=== PATIENT | female | born 1955 | race Caucasian/White ===

== ENCOUNTER 2020-10-30 09:11 | Day surgery (SDC) | payer OTHER ==
[2020-10-28 12:48] VITALS: BMI 29.2
[~2020-10-30 09:11] MED LIST: LACTATED RINGERS 1,000 ML IV SCH; LIDOCAINE 1% (10MG/ML) FOR IV START INTRADERMA PRN
[2020-10-30 10:10] VITALS: RESP 16; TEMP 96.6
[2020-10-30] MEDS ORDERED: PROPOFOL 10 MG/ML 20 ML VIAL IV ONE (10:47)
[2020-10-30] MEDS ORDERED: MIDAZOLAM 2 MG/2 ML VIAL ONE (10:47)
--- NOTE | 2020-10-30 11:09 | P.PCN ---
Date of Procedure: 10/30/20 Procedure(s) Performed: BRIEF HISTORY: Patient is a 65-year-old pleasant white female scheduled for an elective colonoscopy as a part of screening for colorectal neoplasia. PROCEDURE PERFORMED: Colonoscopy. PREOPERATIVE DIAGNOSIS: Screening for colon cancer. IV sedation per Anesthesia. PROCEDURE: After informed consent was obtained, the patient, was brought into the endoscopy unit. IV sedation was administered by Anesthesia under continuous monitoring. Digital rectal examination was normal. Initially the Olympus CF-160 flexible video colonoscope was then inserted in the rectum, gradually advanced into the cecum without any difficulty. Careful examination was performed as the scope was gradually being withdrawn. Ileocecal valve and the appendiceal orifice were visualized and appeared normal. Prep was excellent. Mucosa of the cecum, ascending colon, transverse colon, descending colon, sigmoid colon, and rectum appeared normal. Retroflexion was performed in the rectum and no lesions were seen. The patient tolerated the procedure well. IMPRESSION: Normal-appearing colon from rectum to cecum with no evidence of colorectal neoplasia. RECOMMENDATIONS: Findings of this examination were discussed with the patient well as her family.. She was advised to have a repeat screening colonoscopy in 10 years
[2020-10-30 11:31] VITALS: BP 117/91; PULSE 73
== END 2020-10-30 11:48 ==
LOC: ORWHC2ENDO 09:11
PROVIDERS: ATTEND Internal Medicine Gastroenterology
DX: Z12.11 Encounter for screening for malignant neoplasm of colon (principal); K57.90 Diverticulosis of intestine, part unspecified, without perforation or abscess without bleeding; I10 Essential (primary) hypertension; E78.5 Hyperlipidemia, unspecified; F17.210 Nicotine dependence, cigarettes, uncomplicated; Z79.82 Long term (current) use of aspirin; Z79.899 Other long term (current) drug therapy
CPT/HCPCS: G0121; J2250; J2704; 45378

== ENCOUNTER → 2020-12-30 | Outpatient (CLI) | payer OTHER ==
--- NOTE | 2020-12-30 07:58 | MR ---
EXAMINATION TYPE: MR lumbar spine wo con DATE OF EXAM: 12/30/2020 COMPARISON: NONE HISTORY: Lower back pain, numbness in legs, prior surgery. TECHNIQUE: Multiplanar, multisequence imaging of the lumbar spine is performed without IV contrast. FINDINGS: There is dextroconvex scoliosis centered at L2 level. Alignment is straightened on sagittal images. There is grade 1 retrolisthesis L1 on L2 and grade 1 anterolisthesis L2 on L3 along with gra de 1 retrolisthesis L4 on L5 and L5 and S1. Sagittal images of the lumbar spine show vertebral body h eight to appear satisfactory. Multilevel disc desiccation. Moderate to advanced disc space narrowing with heterogeneous Modic type II endplate changes and moderate to severe spurring L5-S1 level. Modera te disc space narrowing L1-L2 and L2-L3 levels with heterogeneous Modic type III endplate changes ant eriorly and moderate to severe anterior spurring. Artifact from postsurgical change posteriorly mid t o lower lumbar spine is present. The conus medullaris is normal in position and signal ending mid L1 level. Axial images at T12-L1 level shows spondylolisthesis with moderate to severe broad disc bulge effacin g anterior thecal sac. There is moderate facet degenerative changes and ligamentum flavum hypertrophy . There is mild bilateral anterior inferior neural foraminal narrowing. Axial images at L1-L2 level shows severe broad disc bulge and moderate facet degenerative changes. Th ere is effacement of the anterior and posterior lateral thecal sac. There is advanced left and mild t o moderate right-sided neural foraminal narrowing. Axial images at L2-L3 level show spondylolisthesis with advanced broad disc bulge. There is right brown inectomy defect. There is moderate to advanced facet degenerative change bilaterally. There is efface ment of the left posterolateral thecal sac and the anterior thecal sac. There is mild to moderate louie ateral neural foraminal narrowing noted right greater than left. Axial images at L3-L4 level show artifact posteriorly from surgical change. There is spondylolisthesi s with moderate to advanced broad-based posterior disc protrusion effaces the anterior thecal sac. Th ere is moderate to advanced facet arthropathy bilaterally. There is mild left-sided neural foraminal narrowing. Right-sided neural foramen is patent. Axial images at L4-L5 level shows advanced facet degenerative changes and ligamentum flavum hypertrop hy with some effacement of the posterior lateral thecal sac. The susceptibility artifact from prior s urgery. There is moderate broad disc bulge. Encroachment right lateral recess. Patent left-sided neur al foramina. Mild to moderate right-sided neural foraminal narrowing noted. Axial images at L5-S1 level show artifact posteriorly and spinous process resection. Mild facet arthr opathy bilaterally there is spur disc complex with spinal canal is preserved. There is moderate to se willow right and mild left-sided neural foraminal narrowing. Encroachment right L5 nerve without presen t sagittal image 11 and axial image 2. There are few scattered thin-walled cyst with visualized portions left kidney. IMPRESSION: Loss of normal lumbar lordosis. Dextroconvex scoliosis. Multilevel spondylolisthesis and degenerative changes as detailed above. Postsurgical change posteriorly lower lumbar spine. Correlati on with old outside imaging would be beneficial.
== END | disposition home or self-care (01) ==
LOC: RADMRIMAIN 06:27
PROVIDERS: ATTEND Family Medicine
DX: M43.16 Spondylolisthesis, lumbar region (principal); M47.816 Spondylosis without myelopathy or radiculopathy, lumbar region; M41.86 Other forms of scoliosis, lumbar region; M53.86 Other specified dorsopathies, lumbar region; Z98.890 Other specified postprocedural states
CPT/HCPCS: 72148

== ENCOUNTER → 2021-01-18 | Outpatient (CLI) | payer OTHER ==
--- NOTE | 2021-01-18 08:20 | CT ---
EXAMINATION TYPE: CT lumbar spine wo con DATE OF EXAM: 01/18/2021 COMPARISON: None HISTORY: 65-year-old female disc degeneration, pain TECHNIQUE: Contiguous axial scanning of the lumbar spine without IV contrast. Coronal and sagittal re constructions performed. CT DLP: 1331.7 mGycm Automated exposure control for dose reduction was used. FINDINGS: Small to moderate sized hiatal hernia. Vertebral body heights are preserved. Degenerated disc. Previous fusion hardware along the posterior elements from L2 through L5 levels. Ad vanced hypertrophic facet arthropathy both above and below the fusion at L1-L2 and L5-S1. Advanced de generative disc disease also noted at these levels and also within the remainder of the lumbar spine. There is mature lateral osseous fusion along the fused levels. Grade 1 anterolisthesis L3-L4. Degenerative grade 1 anterolisthesis above the fusion at L2-L3. There is underlying congenital spinal canal stenosis. This is exacerbated by discussed by complex for mation particularly at T12-L1 and L1-L2 resulting in focal levels of severe spinal canal stenosis. Moderate spinal canal stenosis at L3-L4. Mild at additional levels. On the left, changes both in severe spinal canal stenosis at L1-L2 and moderate additional levels. On the right, changes result in moderate to severe spinal canal stenosis at L5-S1 and moderate at L3- L4 and L4-L5. Stable 4.8 cm craniocaudal by 1.9 cm wide by 9 mm AP fluid collection along the posterior midline op posite the L2 and L3 levels. IMPRESSION: 1. DEGENERATED DEXTROCONVEX SCOLIOSIS WITH PREVIOUS POSTERIOR ELEMENT FUSION HARDWARE AND LATERAL OSS EOUS FUSION FROM L2 THROUGH L5 LEVELS. 2. FIXED GRADE 1 ANTEROLISTHESIS AT L2-L3 AND DEGENERATIVE GRADE 1 ANTEROLISTHESIS AT L1-L2. CHANGES ARE SUPERIMPOSED ON A CONGENITAL SPINAL CANAL STENOSIS. 3. SEVERE DEGENERATIVE DISC DISEASE AT THE NONFUSED LEVELS AND ADVANCED HYPERTROPHIC FACET ARTHROPATH Y. 4. DUE TO DISC OSTEOPHYTE COMPLEX FORMATION, THERE IS OVERALL SEVERE FOCAL SPINAL CANAL STENOSES AT T 12-L1 AND L1-L2. MODERATE OVERALL SPINAL CANAL STENOSIS AT L3-L4 AND MILD AT OTHER LEVELS. 5. VARIABLE NEURAL FORAMINAL STENOSES OUTLINED ABOVE. 6. SMALL STABLE ELONGATED 4.8 X 1.9 CM FLUID COLLECTION ALONG THE POSTERIOR MIDLINE SOFT TISSUES OPPO SITE THE L2 AND L3 LEVELS. POSSIBLE CHRONIC HEMATOMA OR SEROMA. FURTHER CLINICAL CORRELATION CAN BE M LEWIS TO EXCLUDE ABSCESS. 7. [id number] SIZED HIATAL HERNIA.
== END | disposition home or self-care (01) ==
LOC: RADCTMAIN 06:46
PROVIDERS: ATTEND Neurological Surgery
DX: M48.061 Spinal stenosis, lumbar region without neurogenic claudication (principal); M48.05 Spinal stenosis, thoracolumbar region; M43.16 Spondylolisthesis, lumbar region; M51.36 Other intervertebral disc degeneration, lumbar region; M47.816 Spondylosis without myelopathy or radiculopathy, lumbar region; M41.86 Other forms of scoliosis, lumbar region; M79.89 Other specified soft tissue disorders; Z98.1 Arthrodesis status
CPT/HCPCS: 72131

== ENCOUNTER → 2021-01-25 | Outpatient (CLI) | payer OTHER ==
--- NOTE | 2021-01-25 13:01 | MR ---
MRI CERVICAL SPINE: CLINICAL HISTORY: Degenerative disc disease, ataxic gait, back pain TECHNIQUE: Multiplanar, multisequence imaging of the cervical spine and thoracic spine is performed w ithout IV contrast. COMPARISON: Lumbar spine MRI 12/30/2020 FINDINGS: Cervical spine MRI: Sagittal images of the cervical spine show the craniocervical junction to appear within normal limits. The cervical and upper thoracic spinal cord is normal in course, caliber, and signal. Vertebral alignment is near anatomic. There is some multilevel spondylosis with endplate dis cogenic marrow signal change. Some loss of disc height signal is present C3-4, C4-5 and C5-6, C6-7. M inimal anterolisthesis grade 1 C3-4 and C4-5, retrolisthesis grade 1 C5-6. C2-3: There is a left posterior paracentral extension of endplate disc complex causing anterolateral mass effect on the thecal sac and extending to cause some foraminal encroachment, there is some assoc iated facet arthropathy change. No significant central stenosis. C3-4: Posterior broad-based disc bulge causes mild anterior mass effect on the thecal sac. Uncoverteb ral joint hypertrophy facet arthropathy results in foraminal encroachment greater on the left than on the right. No significant central stenosis. C4-5: No evident disc herniation. There is some left-sided foraminal encroachment greater than right due to uncovertebral joint hypertrophy and facet arthropathy. No central stenosis. C5-6: Retrolisthesis contributes with posterior extension endplate disc complex, circumferential post erior disc bulge causing anterior mass effect thecal sac and possibly cord contact, question some mas s effect on the cervical cord. There is bilateral foraminal encroachment right greater than left due to uncovertebral joint hypertrophy and facet arthropathy. Some mild central canal stenosis is present . C6-7: Posterior broad-based disc bulge, extension endplate disc complex causes some mild anterior mas s effect on the thecal sac. No significant central canal stenosis. Some right-sided foraminal encroac hment is present. C7-T1: No significant disc herniation or foraminal encroachment, no spinal stenosis. Thoracic spine MRI: Thoracic vertebral bodies show preserved height and alignment. There is multileve l spondylosis with endplate discogenic marrow signal change. Thoracic cord signal is maintained. Ther e is a spinal curvature. Probable cortical cyst associated with the upper pole the left kidney. T7-T8 shows a left posterior paracentral disc herniation causing some anterolateral mass effect on th e thecal sac and possibly cord contact. T8-9 shows posterior broad-based disc bulge causing mild anterior mass effect on the thecal sac. T9-1 0 shows posterior extension endplate disc complex causing mild anterior mass effect on the thecal sac . There is some mild foraminal encroachment. T9-10: There is a posterior broad-based disc bulge causing anterior mass effect on the thecal sac. Th ere is some facet arthropathy change causing posterior lateral mass effect on the thecal sac. Bilater al foraminal encroachment is present. T12-L1: There is a posterior linnette based disc herniation causing anterior mass effect on the conus. The re is some facet arthropathy change causing some posterior lateral mass effect on the thecal sac, the re is moderate canal stenosis, bilateral foraminal encroachment due to circumferential extension endp late disc complex greater on the right. IMPRESSION: Degenerative disc disease, facet arthropathy, multilevel foraminal encroachment, spinal s tenosis as described.
== END ==
LOC: RADMRIMAIN 08:19
PROVIDERS: ATTEND Neurological Surgery
DX: M51.25 Other intervertebral disc displacement, thoracolumbar region (principal); M48.02 Spinal stenosis, cervical region; M47.812 Spondylosis without myelopathy or radiculopathy, cervical region; M50.223 Other cervical disc displacement at C6-C7 level
CPT/HCPCS: 72141; 72146

== ENCOUNTER → 2021-06-01 | Outpatient (CLI) | payer MEDICARE, OTHER ==
--- NOTE | 2021-06-03 11:42 | MM ---
Reason for exam: screening (asymptomatic). Last mammogram was performed 2 years and 3 months ago. History: Patient is postmenopausal. Took hormonal contraceptives for 3 years. Physical Findings: A clinical breast exam by your physician is recommended on an annual basis and results should be correlated with mammographic findings. MG 3D Screening Mammo W/Cad Bilateral CC and MLO view(s) were taken. Prior study comparison: February 26, 2019, mammogram, performed at [place]. The breast tissue is heterogeneously dense. This may lower the sensitivity of mammography. Stable benign calcifications. There is no discrete abnormality. No significant changes when compared with prior studies. ASSESSMENT: Benign, BI-RAD 2 RECOMMENDATION: Routine screening mammogram of both breasts in 1 year.
== END | disposition home or self-care (01) ==
LOC: RADMAMWWP 07:05
PROVIDERS: ATTEND Family Medicine
DX: Z12.31 Encounter for screening mammogram for malignant neoplasm of breast (principal); Z78.0 Asymptomatic menopausal state; Z79.3 Long term (current) use of hormonal contraceptives
CPT/HCPCS: 77063; 77067

== ENCOUNTER → 2021-09-15 | Outpatient (CLI) | payer MEDICARE, OTHER ==
--- NOTE | 2021-09-15 08:41 | CT ---
EXAMINATION TYPE: CT thoracic spine wo con DATE OF EXAM: 09/15/2021 COMPARISON: Lumbar spine 01/18/2021 HISTORY: scoliosis thoracolumbar region CT DLP: 936 mGycm Automated exposure control for dose reduction was used. FINDINGS: There is a subtle scoliotic curvature of the vertebral column. There is hypertrophic spurring and mod erate to severe degenerative disc disease at virtually all levels. Vertebral body height is maintaine d. There are no compression. Multilevel hypertrophic change of the facets most noted in the lower tho racic spine Assessment spinal canal is markedly limited due to resolution and artifact. At T7-T8 there is abnormal left paracentral attenuation seen suspicious for disc herniation. At T8-T9 paracentral disc bulging. Could not exclude canal stenosis. T9-T10 and T10-T11 there is posterior spondylosis and spurring. At T10-T11 there is significant compr ession of the thecal sac with findings suggestive of canal stenosis at T10-T11 At T12-L1 there is large posterior spur osteophyte disc complex resulting in severe compression of th e thecal sac. There is facet arthropathy and bilateral foraminal encroachment and severe canal stenos is. Cord compression is not excluded. Atherosclerotic change of the aorta noted. Suspected aneurysm of the ascending aorta which is only pa rtially included on exam. IMPRESSION: 1. Multilevel moderate to severe degenerative disc disease with posterior spur formation. Suspected d isc herniation T7-T8 paracentral to the left. 2. Spurring and disc osteophyte complex T12-L1 and T10-T11 results in severe canal stenosis and likel y compression of the spinal cord correlate clinically. Given limitation of the exam recommend MRI. 3. Findings are suspicious for ascending aorta aneurysm which is only partially included on exam coul d be correlated with CT scan of the chest.
== END | disposition home or self-care (01) ==
LOC: RADCTMAIN 07:58
PROVIDERS: ATTEND Neurological Surgery
DX: M51.34 Other intervertebral disc degeneration, thoracic region (principal); M48.04 Spinal stenosis, thoracic region
CPT/HCPCS: 72128

== ENCOUNTER → 2021-09-29 | Outpatient (CLI) | payer MEDICARE, OTHER ==
--- NOTE | 2021-09-29 09:18 | CT ---
EXAMINATION TYPE: CT chest wo con DATE OF EXAM: 09/29/2021 COMPARISON: None HISTORY: Aortic aneurysm without rupture CT DLP: 379.10 mGycm, Automated exposure control for dose reduction was used. CONTRAST: Performed injected with 0 mL of Isovue 300. TECHNIQUE: Axial images were obtained at 5 mm thick sections. Reconstructed images are reviewed on t he computer in the coronal plane. FINDINGS: Portion of the thyroid visualized is normal. Minimal infiltrate may be in the posterior right upper lung field, example image series 4 image 15. T his is nonspecific. Atelectasis could be considered. No enlarged mediastinal or hilar adenopathy is evident. The ascending aorta diameter at the level o f the main pulmonary artery is 4.0 cm. The main pulmonary artery diameter at the bifurcation is 2.3 cm. Coronary artery calcification is noted. Limited CT sections are obtained through the upper abdomen. Abdomen is essentially unremarkable. IMPRESSIONS: 1. Ascending thoracic aortic aneurysm measures 4.0 cm. No additional aneurysmal dilatation is evident within the field of view. 2. Minimal subsegmental atelectasis may be present within the lungs.
== END | disposition home or self-care (01) ==
LOC: RADCTMAIN 08:30
PROVIDERS: ATTEND Family Medicine
DX: I71.2 Thoracic aortic aneurysm, without rupture (principal); J98.11 Atelectasis
CPT/HCPCS: 71250

== ENCOUNTER → 2021-11-26 | Outpatient (CLI) | payer MEDICARE, OTHER ==
--- NOTE | 2021-11-26 09:44 | MR ---
EXAMINATION TYPE: MR angio head wo con DATE OF EXAM: 11/26/2021 COMPARISON: NONE HISTORY: Family history of aneurysms, history of AAA. TECHNIQUE: Utilizing 3-D [id number] intracranial MRA of the [place] was performed. FINDINGS: The vertebrobasilar and carotid systems are patent. There is a 1 mm prominence extending off the left distal ICA. Left vertebral artery is dominant. IMPRESSION: 1. Findings are suspicious for a 1 mm left distal ICA aneurysm.
== END | disposition home or self-care (01) ==
LOC: RADMRIMAIN 05:49
PROVIDERS: ATTEND Neurological Surgery
DX: I67.1 Cerebral aneurysm, nonruptured (principal)
CPT/HCPCS: 70544

== ENCOUNTER → 2022-11-09 | Outpatient (CLI) | payer MEDICARE, OTHER ==
--- NOTE | 2022-11-09 20:48 | MR ---
EXAMINATION TYPE: MR lumbar spine wo con DATE OF EXAM: 11/09/2022 COMPARISON: Prior MRI lumbar spine December 30, 2020 HISTORY: Low back pain that radiates into left and right buttocks, history of surgery. Spondylolisthe sis. Spinal stenosis. TECHNIQUE: Multiplanar, multisequence imaging of the lumbar spine is performed without IV contrast. FINDINGS: There is persistent dextroconvex scoliosis centered at L2 level. Alignment is stable and st raightened on sagittal images. There is grade 1 retrolisthesis L1 on L2 and grade 1 anterolisthesis L 2 on L3 along with grade 1 anterolisthesis L4 on L5 . Sagittal images of the lumbar spine show verteb ral body heights to appear satisfactory. Multilevel disc desiccation. Moderate to advanced disc space narrowing with heterogeneous Modic type II endplate changes and moderate to severe anterior spurring L5-S1 level is redemonstrated. Moderate disc space narrowing L1-L2 and L2-L3 levels with heterogeneo us Modic type III endplate changes anteriorly and moderate to severe anterior spurring is redemonstra tejinder. Artifact from postsurgical change posteriorly mid to lower lumbar spine is redemonstrated. The c onus medullaris remains normal in position and signal ending superior L2 level. Axial images at T12-L1 level shows spondylolisthesis with moderate to severe broad disc bulge effacin g anterior thecal sac. There is moderate facet degenerative changes and ligamentum flavum hypertrophy . There is mild bilateral anterior inferior neural foraminal narrowing. No significant change from pr ior. Axial images at L1-L2 level shows severe broad disc bulge and mild to moderate facet degenerative cody nges left greater than right. There is effacement of the anterior and posterior lateral thecal sac. T here is advanced left and mild to moderate right-sided neural foraminal narrowing redemonstrated. Axial images at L2-L3 level show spondylolisthesis with advanced broad disc bulge. There is right brown inectomy defect. There is moderate to advanced facet degenerative change bilaterally. There is efface ment of the left posterolateral thecal sac and the anterior thecal sac. There is mild to moderate louie ateral neural foraminal narrowing redemonstrated. No significant change. Axial images at L3-L4 level show artifact posteriorly from surgical change. There is spondylolisthesi s with moderate to advanced broad-based posterior disc protrusion effaces the anterior thecal sac. Th ere is moderate to advanced facet arthropathy bilaterally. There is mild bilateral neural foraminal n arrowing. Axial images at L4-L5 level shows advanced facet degenerative changes and ligamentum flavum hypertrop hy with some effacement of the posterior lateral thecal sac. There is susceptibility artifact from pr ior surgery. There is moderate broad disc bulge with encroachment right lateral recess. Patent left-s ided neural foramina. Mild right-sided neural foraminal narrowing redemonstrated. No significant carias ge. Axial images at L5-S1 level show artifact posteriorly and spinous process resection. Mild facet arthr opathy bilaterally redemonstrated. There is spur disc complex with spinal canal minimally effaced. Th ere is severe right and mild left-sided neural foraminal narrowing. Encroachment right L5 nerve is re demonstrated . There are few scattered thin-walled cysts with visualized portions of both kidneys. IMPRESSION: Loss of normal lumbar lordosis redemonstrated. Dextroconvex scoliosis redemonstrated. Mul tilevel spondylolisthesis and degenerative changes as detailed above. Postsurgical change posteriorly lower lumbar spine. No significant change from most recent MRI.
== END | disposition home or self-care (01) ==
LOC: RADMRIMAIN 18:08
PROVIDERS: ATTEND Neurological Surgery
DX: M43.16 Spondylolisthesis, lumbar region (principal); M48.04 Spinal stenosis, thoracic region; M47.816 Spondylosis without myelopathy or radiculopathy, lumbar region; M40.56 Lordosis, unspecified, lumbar region; M48.061 Spinal stenosis, lumbar region without neurogenic claudication
CPT/HCPCS: 72148

== ENCOUNTER → 2022-11-19 | Outpatient (CLI) | payer MEDICARE, OTHER ==
--- NOTE | 2022-11-19 15:03 | MR ---
EXAMINATION TYPE: MR thoracic spine wo con DATE OF EXAM: 11/19/2022 COMPARISON: 01/25/2021 HISTORY: Mid back pain. Multiplanar multiecho imaging of the thoracic spine performed with no contrast. Thoracic vertebrae have normal alignment. There is posterior disc herniation from T7 to T11. Disc her niation larger at T7-8. There is developmentally adequate spinal canal from T7 to T9. At T10-11 there is disc herniation and some narrowing of the spinal canal. The canal measures 7 mm. No evidence of c ord edema. At T12-L1 and L1-L2 there are moderate posterior disc herniations and impingement on the s franky canal. No compression fracture. No thoracic paraspinal mass. No fracture. IMPRESSION: Spondylotic changes in the lower thoracic spine with disc space narrowing and multilevel posterior di sc herniation. There is a mild relative spinal stenosis at T10-11. No thoracic cord edema. At T12-L1 and L1-L2 there are moderate-sized posterior disc herniations and spinal stenosis which is not well e valuated and appears not significantly different than old MR scan of 01/25/2021. Spinal stenosis at T10 -11 slightly increased compared to old exam.
== END | disposition home or self-care (01) ==
LOC: RADMRIMAIN 13:19
PROVIDERS: ATTEND Neurological Surgery
DX: M48.04 Spinal stenosis, thoracic region (principal); M47.814 Spondylosis without myelopathy or radiculopathy, thoracic region; M51.24 Other intervertebral disc displacement, thoracic region; M99.72 Connective tissue and disc stenosis of intervertebral foramina of thoracic region
CPT/HCPCS: 72146

== ENCOUNTER → 2022-12-13 | Outpatient (CLI) | payer MEDICARE, OTHER ==
[2022-12-15 06:09] LABS: Cotinine 4.5 ng/mL (<2.0); Nicotine <2.0 ng/mL (<2.0)
== END | disposition home or self-care (01) ==
LOC: LABWHC1 16:06
PROVIDERS: ATTEND Neurological Surgery
DX: M40.30 Flatback syndrome, site unspecified (principal)
CPT/HCPCS: 82375; 36415; G0480; 80323

== ENCOUNTER → 2023-09-27 | Outpatient (CLI) | payer MEDICARE, OTHER ==
[2023-09-27 07:31] LABS: African American GFR (CKD) >90 (>60 ml/min/1.73 sqM); Blood Urea Nitrogen 12 mg/dL (7-17); Non-African American GFR(CKD) >90 (>60 ml/min/1.73 sqM)
--- NOTE | 2023-09-27 08:12 | CT ---
EXAMINATION TYPE: CT angio chest CT DLP: 598.3 mGycm, Automated exposure control for dose reduction was used. DATE OF EXAM: 09/27/2023 8:00 AM COMPARISON: 08/23/2023 and 09/29/2022. CLINICAL INDICATION:Female, 68 years old with history of I71.20 THORACIC AORTIC ANEURYSM WO RUPTURE; Thoracic aneurysm TECHNIQUE/CONTRAST: CTA scan of the thorax is performed without and with IV Contrast, patient injected with 100 mL of Iso rod 370, MIP images are created and reviewed these are created on a separate workstation.. FINDINGS: Lungs/Pleura: No evidence of focal consolidation, pleural effusion or pneumothorax. Airway: Large airways are patent. Heart: Heart is within normal limits for size. Vasculature: No evidence for intramural hematoma on noncontrast imaging. No evidence of intimal flap to suggest dissection. No aneurysm identified. Scattered atherosclerotic disease. No evidence for oc clusion of the visualized major vessels of the thoracic aorta. Mediastinum: No gross evidence of adenopathy. Musculoskeletal: No acute osseous abnormalities, extensive surgical changes throughout the spine with streak artifact which limits evaluation. Hardware appears intact. Soft Tissues: Unremarkable. Lower neck: There is a fluid collection partially in the [id number] in the upper spine measuring 4 .5 x 2.6 cm in the subcutaneous tissues of the back likely relating to patient's history of spine ayala andi. Upper Abdomen: No significant findings. IMPRESSION: 1. Borderline ectasia of the ascending thoracic aorta measuring up to 3.9 cm when measuring orthogon al to the axis of flow. No evidence for aortic aneurysm. No evidence for dissection. 2. There is a fluid collection partially in the [id number] in the upper spine measuring 4.5 x 2.6 cm in the subcutaneous tissues of the back likely relating to patient's history of spine surgery. Un changed from prior 08/23/2023 and new from 09/29/2022.
== END | disposition home or self-care (01) ==
LOC: RADCTMAIN 06:56
PROVIDERS: ATTEND Surgery
DX: I71.21 Aneurysm of the ascending aorta, without rupture (principal); R60.9 Edema, unspecified
CPT/HCPCS: 82565; 84520; 71275; 36415; Q9967

== ENCOUNTER → 2024-01-05 | Outpatient (CLI) | payer MEDICARE, OTHER ==
--- NOTE | 2024-01-08 08:17 | MM ---
Reason for Exam: Screening (asymptomatic). Last mammogram was performed 2 year(s) and 7 month(s) ago. Patient History: Menarche at age 16. First Full-Term at age 17. Postmenopausal. Patient used Hormonal Contraceptives for 3 years. Risk Values: Kaitlyn 5 year model risk: 1.1%. NCI Lifetime model risk: 3.8%. Prior Study Comparison: 02/26/2019 Screening Mammogram, [place]. 06/01/2021 Bilateral Screening Mammogram, [facility]. Tissue Density: The breast tissue is almost entirely fat. Findings: Analyzed By CAD. There is no suspicious group of microcalcifications or new suspicious mass. Overall Assessment: Negative, BI-RAD 1 Management: Screening Mammogram of both breasts in [address] [facility] will attempt to contact patient to return for supplemental views and ultrasound if indicated. Patient should continue monthly self-breast exams. A clinical breast exam by your physician is recommended on an annual basis. This exam should not preclude additional follow-up of suspicious palpable abnormalities. Note on Kaitlyn scores and lifetime risk: 1. A Kaitlyn score greater than 3% is considered moderate risk. If this is the case, consider specialist referral to assess eligibility for a risk reducing agent. 2. If overall lifetime risk for the development of breast cancer is 20% or higher, the patient may qualify for future screening with alternating mammogram and breast MRI. Electronically signed and approved by: Vickey Brantley DO
== END | disposition home or self-care (01) ==
LOC: RADMAMWWP 07:05
PROVIDERS: ATTEND Family Medicine
DX: Z12.31 Encounter for screening mammogram for malignant neoplasm of breast (principal); Z78.0 Asymptomatic menopausal state
CPT/HCPCS: 77063; 77067

== ENCOUNTER → 2024-04-05 | Outpatient (CLI) | payer MEDICARE, OTHER ==
--- NOTE | 2024-04-05 08:50 | MR ---
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 TECHNIQUE: Multi planar, multi sequence imaging was performed utilizing: T1-weighted, T2-weighted, an d turbo inversion recovery imaging of the cervical spine. IV Contrast: cc (none if empty) FINDINGS: Alignment: The cervical vertebral bodies have preserved heights. Grade 1 anterolisthesis of C4 on C5. Bones: Osteophytes and disc space narrowing most pronounced at the C4 C5 C6 vertebral levels. Suscept ibility artifact of the upper thoracic spine from fixation hardware. Cord: The spinal cord is unremarkable with regards to their signal intensity and morphology. Discs: Intervertebral disc signal is maintained. C2-C3: No significant disc pathology. The spinal canal is patent. Bilateral facet and uncovertebral joint arthropathy are present with mild left neural foraminal stenosis. The right neural foramen is p atent. C3-C4: No significant disc pathology. The spinal canal is patent. Bilateral facet and uncovertebral joint arthropathy are present with moderate bilateral neural foraminal stenosis. C4-C5: No significant disc pathology. The spinal canal is patent. Bilateral facet and uncovertebral joint arthropathy are present with mild to moderate bilateral neural foraminal stenosis. C5-C6: A disc osteophyte complex is present with moderate spinal canal stenosis. Bilateral facet and uncovertebral joint arthropathy are present with moderate to severe right and moderate left neural f oraminal stenosis. C6-C7: No significant disc pathology. The spinal canal is patent. Bilateral facet and uncovertebral joint arthropathy are present with mild bilateral neural foraminal stenosis. C7-T1: No significant disc pathology. The spinal canal is patent. No neural foraminal stenosis. Other: None. IMPRESSION: 1. No evidence for disc herniation. 2. C5-C6 moderate spinal canal stenosis secondary to disc osteophyte complex. 3. Mild to moderate disc degeneration with associated osteoarthritic changes. 4. Neural foraminal stenosis worse with moderate to severe right C5-C6, moderate bilateral C3-C4 and moderate left C5-C6 neural foraminal stenosis. 5. Grade 1 anterolisthesis of C4 on C5.
== END | disposition home or self-care (01) ==
LOC: RADMRIMAIN 07:36
PROVIDERS: ATTEND Neurological Surgery
DX: M48.02 Spinal stenosis, cervical region (principal); M50.30 Other cervical disc degeneration, unspecified cervical region; M43.12 Spondylolisthesis, cervical region; M99.71 Connective tissue and disc stenosis of intervertebral foramina of cervical region; M25.78 Osteophyte, vertebrae; M40.30 Flatback syndrome, site unspecified
CPT/HCPCS: 72141

== ENCOUNTER → 2024-05-03 | Outpatient (CLI) | payer MEDICARE, OTHER ==
--- NOTE | 2024-05-10 22:48 | CT ---
EXAMINATION TYPE: CT cervical spine wo con, CT thoracic spine wo con DATE OF EXAM: 05/03/2024 COMPARISON: Thoracic spine 09/15/2021 HISTORY: 69-year-old female spinal stenosis. M48.02SPINAL STENOSIS, CERVICAL APOLINAR M41.85 M48.04 TECHNIQUE: Contiguous axial scanning of the cervical and thoracic spine without IV contrast. Coronal and sagittal reconstructions performed. CT DLP: 619.3 (accession [id number]), 1515.7 (accession [id number]) mGycm Automated exposure control for dose reduction was used. FINDINGS: CERVICAL SPINE: No craniocervical junction abnormality, predental space widening, or prevertebral soft tissue swellin g. Mild degenerative change at the C1 dens articulation. Advanced hypertrophic facet arthropathy is present throughout with scattered moderate uncovertebral j oint arthropathy mid and lower cervical spine. Mild to moderate multilevel degenerative disc disease. Degenerative grade 1 anterolisthesis C4-C5. Remaining alignment is maintained. Disc osteophyte complexes likely contributing to mild spinal canal narrowing at various levels, possi ronaldo more moderate at C5-C6 though artifact from the patient's shoulders limits detailed assessment of the spinal canal. No acute fracture of the cervical spine. At C2-C3, uncovertebral joint and facet arthropathy especially towards the left continues to a modera te left neuroforaminal stenosis. At C3-C4, hypertrophic facet arthropathy with uncovertebral joint spurring contributes to moderate to severe left and [id number] right neuroforaminal stenosis. At C4-C5, severe hypertrophic facet and uncovertebral joint arthropathy, left greater than right cont ributes to severe left and mild right neural foraminal stenosis. At C5-C6, similar changes result in moderate right neuroforaminal stenosis. At C6-C7, uncovertebral joint and facet arthropathy contributes to moderate right and mild left neuro foraminal stenosis. Incidentally, some retained metal wire noted in the posterior right paraspinal musculature opposite t he T2-T3 level. THORACIC SPINE: As compared to 01/16/2021, there has been placement of extensive posterior thoracolumbar fusion hardwa re extending down from the T4 level. There is focal kyphotic deformity at T3-T4 with a superior endplate deformity of T4 with 40% anterior height loss, severe degenerative disc disease at T3-T4, and a grade 2 anterolisthesis here as well. Posterior osteophytic ridging may be slightly increased compared to 09/27/2023 and may cause a moderat e focal spinal canal stenosis. Correlate for any neurologic symptoms. Overall appearance is relativel y similar compared to 09/27/2023. Laminectomy change T12-L1 with bulky posterior disc osteophyte complex here. Remaining vertebral body heights are preserved. IMPRESSION: CERVICAL SPINE: 1. [id number] multilevel degenerative disc disease but with more advanced multilevel hypertroph ic facet and uncovertebral joint arthropathy. Degenerative grade 1 anterolisthesis C4-C5. 2. Variable mild spinal canal narrowing though possibly more moderate at C5-C6. Artifact from the pat ient's shoulders limits detailed assessment of the spinal canal. 3. Variable neural foraminal stenoses as outlined above. Severe on the left at C4-C5. THORACIC SPINE: 4. Placement of extensive posterior thoracolumbar fusion hardware extending down from the T4 level an d down beyond the [id number], new compared to 01/16/2021. 5. Superior endplate deformity of T4 with 40% anterior height loss, secondary focal kyphosis, and a g rade 2 anterolisthesis here at L3-L4. The overall configuration appears similar compared to 09/27/2023 though the posterior osteophytic ridging may be slightly increased. There may be a moderate spinal c anal stenosis here at L3-L4. 6. Redemonstrated bulky posterior disc osteophyte complex at T12-L1 but with interval laminectomy at this level.
== END | disposition home or self-care (01) ==
LOC: RADCTMAIN 06:18
PROVIDERS: ATTEND Neurological Surgery
DX: M43.12 Spondylolisthesis, cervical region (principal); M47.812 Spondylosis without myelopathy or radiculopathy, cervical region; M99.71 Connective tissue and disc stenosis of intervertebral foramina of cervical region; M48.02 Spinal stenosis, cervical region; M40.204 Unspecified kyphosis, thoracic region; M43.8X4 Other specified deforming dorsopathies, thoracic region; M48.04 Spinal stenosis, thoracic region; M43.16 Spondylolisthesis, lumbar region; M25.78 Osteophyte, vertebrae; Z98.1 Arthrodesis status
CPT/HCPCS: 72125; 72128

== ENCOUNTER → 2024-09-12 | Outpatient (CLI) | payer MEDICARE, OTHER ==
--- NOTE | 2024-09-12 11:54 | CT ---
EXAMINATION TYPE: CT chest wo con DATE OF EXAM: 09/12/2024 COMPARISON: 08/23/2023 HISTORY: THORACIC AORTIC ANEURYSM, WITHOUT RUPTURE CT DLP: 420.10 mGycm. Automated Exposure Control for Dose Reduction was Utilized. TECHNIQUE: CT scan of the thorax is performed without IV contrast. FINDINGS: LUNGS: The lungs are grossly clear, there is no concerning parenchymal mass or nodule identified. T here is no pleural effusion or pneumothorax seen. The tracheobronchial tree is patent. The heart and pulmonary vasculature are normal. Limited scanning through the upper abdomen reveals no abnormality. There are postsurgical changes in the dorsal spine but no focal osseous lesions. There is a 4.2 cm dilatation of the ascending thoracic aorta essentially stable compared to the prior study where it measured 4.1 cm There is no mediastinal, hilar or axillary adenopathy. IMPRESSION: 1. Stable 4.2 cm dilatation of the ascending thoracic aorta. 2. No acute cardiopulmonary disease. Follow-up recommendations for incidental pulmonary nodules are per [employer] or [employer]. [facility], , 09/12/2024 11:51 AM
== END | disposition home or self-care (01) ==
LOC: RADCTMAIN 11:22
PROVIDERS: ATTEND Surgery
DX: I71.20 Thoracic aortic aneurysm, without rupture, unspecified (principal)
CPT/HCPCS: 71250